=== PATIENT | female | born 1930 | race Caucasian/White ===

== ENCOUNTER 2016-12-10 07:10 | Day surgery (SDC) | payer MEDICARE, OTHER ==
[2016-12-07 12:06] LABS: HEMATOCRIT 34.5 % (36.0-48.0); HEMOGLOBIN 11.8 g/dL (12.0-16.0)
[2016-12-07 12:14] LABS: CHLORIDE, SERUM 101 MMOL/L (96-112); CO2 (CARBON DIOXIDE) 33 MMOL/L (24-34); CREATININE 0.84 MG/DL (0.55-1.02); GFR AFRICAN AMERICAN 73 ML/MIN (>=60); GFR NON AFRICAN AMERICAN 63 ML/MIN (>=60); POTASSIUM, SERUM 4.2 MMOL/L (3.5-5.3); SODIUM, SERUM 141 MMOL/L (135-148)
[2016-12-07 12:16] LABS: BUN (BLOOD UREA NITROGEN) 19 MG/DL (6-23); GLUCOSE, SERUM 175 MG/DL (60-99)
--- NOTE | ~2016-12-10 | OP ---
Record Of Operation [place] [id number] [facility] [place]. [address] NAME: TUSHAR TYLER : 32 STATUS : [place] [facility] [place] PAT#: [id number] AGE: 86 ADM/REG DATE : 12/10/16 MR#: [id number] REPORT SERV DATE: 12/10/16 DICTATED BY: JUSTIN MEDRANO DATE: 12/10/16 REPORT STATUS : Draft TRANSCRIBED BY: MODAissatou DATE: 12/10/16 DATE OF PROCEDURE: 12/10/2016 PREOPERATIVE DIAGNOSES: 1. Incarcerated periumbilical incisional hernia. 2. Diabetes mellitus. 3. Hypertension. 4. Hyperlipidemia. 5. Obstructive sleep apnea. 6. Asthma. POSTOPERATIVE DIAGNOSES: 1. Incarcerated incisional hernia x2 (periumbilical). 2. Diabetes mellitus. 3. Hypertension. 4. Hyperlipidemia. 5. Obstructive sleep apnea. 6. Asthma. PROCEDURE: Incarcerated incisional hernia x2 with mesh. ANESTHESIA: General. SURGEON: Justin Medrano M.D. [employer] CONSULTANT: Fuentes. COMPLICATIONS: None. DRAINS: None. ESTIMATED BLOOD LOSS: Less than 20 mL. FINDINGS: The patient was noted to have a right periumbilical and supraumbilical incisional hernias with incarcerated omentum and preperitoneal fat with a 0.5 mm skin bridge between the two defects. The total defective hernia space was 3 cm in diameter. OPERATIVE TECHNIQUE: The patient was brought to the operating room and placed on the table in supine position. She had preoperative IV antibiotics. She had sequential hose in place. She voided prior to the procedure. She underwent general endotracheal anesthesia and prepped and draped in a sterile fashion. A time-out was completed. Local anesthesia was instilled to the periumbilical skin. A 10 blade knife was used to make a longitudinal incision. The incision was carried through the subcutaneous tissues down the level of hernia sac at the level of the umbilicus extending just to the patient's right. The hernia sac was circumferentially dissected and during this dissection, the patient was noted to have an additional hernia with a small 5 mm fascial bridge. Both of the hernia sacs were Record Of Operation [place] [id number] [facility] [place]. [address] NAME: TUSHAR TYLER : 32 STATUS : [place] [facility] [place] PAT#: [id number] AGE: 86 ADM/REG DATE : 12/10/16 MR#: [id number] REPORT SERV DATE: 12/10/16 DICTATED BY: JUSTIN MEDRANO DATE: 12/10/16 REPORT STATUS : Draft TRANSCRIBED BY: BEATRIZ DATE: 12/10/16 circumferentially dissected and at this point, the hernia sacs along with incarcerated preperitoneal fat were excised. The finger was inserted into the larger defect and swept under the peritoneum. There were some loose adhesions of the omentum to the anterior abdominal wall that were taken down using electrocautery until all the adhesions of the anterior abdominal wall were taken down. The decision was made to make this one defect and a small fascial bridge was excised and the fascia around the edges of the hernia was debrided. Once healthy fascia was identified, the finger was once again inserted into the abdomen. There was no evidence of any peritoneal adhesions. This was confirmed with visualization. There was no evidence of any bleeding or other abnormalities and at this point, the 6.4 cm Ventralex mesh was placed and secured to the anterior abdominal wall with facial sutures laterally of 2-0 Prolene. The finger was inserted circumferentially to ensure there are no unwanted structures between the mesh and anterior abdominal wall. The primary defect was then closed without tension using a running looped 0 PDS suture. Subcutaneous tissues were then thoroughly irrigated. The subcutaneous tissues were then reapproximated using a running 3-0 Vicryl suture followed by running Monocryl subcuticular stitch. Dermabond was applied. She was extubated and taken to the recovery room in stable condition. All sponge and needle counts were reported correct. FANTASMA/BEATRIZ Justin Medrano M.D. / [id number] CC: Ryland Ricardo MD
[~2016-12-10 07:10] MED LIST: *UNABLE1; AMIT10 PO; ASA5GR PO; ASAB PO; ASABAYER PO; AZOR1 TA1 PO; CALTRA600D PO; CENTRUM PO; CENTRUM TAB1 TAB PO; CINNAMON PO; CLOBETASOL0.051 EX; CLOBETASOL0.051 TOP; FERROUS SULFATE PO; FISH-EPA1000 MG PO; HYDROCHLOROT12.5 MG PO; HYDROCHLOROT25 MG PO; INVOKANA PO; IRON PO; IRON325 MG PO; JANUMET1 TA1 PO; LANTUS SC; LANTUSCART SC; LIPITOR20 PO; LIPITOR40 PO; MAGNESIUM OTC PO; MAGNESIUM PO; MULTIVIT/MIN PO; NEXIUM40 PO; PREDNISONE PO; PRIM50B PO; PVC V; RESTASIS OPH; SINGULAIR1 PO; SYMBICORT 160/41 INH INH; ZOCOR40 PO
[2016-12-10 07:54] LABS: BASOPHILS 0.4 %; BASOPHILS ABSOLUTE 0.03 10/3/uL (0.0-0.16); EOSINOPHILS 0.6 %; EOSINOPHILS ABSOLUTE 0.05 10/3/uL (0.0-0.53); HEMATOCRIT 34.3 % (36.0-48.0); HEMOGLOBIN 11.6 g/dL (12.0-16.0); IMMATURE GRANULOCYTES 0.3 %; IMMATURE GRANULOCYTES ABSOLUTE 0.02 10/3/uL (0.0-0.11); LYMPHOCYTES ABSOLUTE 1.78 10/3/uL (0.67-4.30); MEAN CORPUS HGB CONC 33.8 g/dL (32.0-36.0); MEAN CORPUSCULAR HEMOGLOB 30.4 pg (26.0-34.0); MEAN PLATELET VOLUME 8.5 fL (9.2-13.0); NEUTROPHILS 66.7 %; NEUTROPHILS ABSOLUTE 5.16 10/3/uL (2.02-8.40); PLATELET COUNT 205 10/3/uL (150-400); RBC DISTRIBUTION WIDTH 14.1 % (12.0-16.0); RED CELL COUNT 3.82 10/6/uL (4.0-5.6)
[2016-12-10 07:55] LABS: MANUAL DIFF NO %; MEAN CORPUSCULAR VOLUME 89.8 fL (80-100); WHITE BLOOD CELLS 7.7 10/3/uL (4.5-10.5)
== END 2016-12-10 14:54 | disposition home or self-care (01) ==
LOC: SDC 07:10
PROVIDERS: Surgery
PROC: 0WUF0JZ Supplement Abdominal Wall with Synthetic Substitute, Open Approach (ICD-10-PCS; principal; 2016-12-10 09:00)
DX: K43.0 Incisional hernia with obstruction, without gangrene (principal); I10 Essential (primary) hypertension; E78.5 Hyperlipidemia, unspecified; E11.40 Type 2 diabetes mellitus with diabetic neuropathy, unspecified; E78.00 Pure hypercholesterolemia, unspecified; G47.33 Obstructive sleep apnea (adult) (pediatric); K21.9 Gastro-esophageal reflux disease without esophagitis; J45.909 Unspecified asthma, uncomplicated; H91.93 Unspecified hearing loss, bilateral; Z88.8 Allergy status to other drugs, medicaments and biological substances; Z79.4 Long term (current) use of insulin; Z79.82 Long term (current) use of aspirin; Z96.653 Presence of artificial knee joint, bilateral; Z79.899 Other long term (current) drug therapy; Z96.1 Presence of intraocular lens; Z98.41 Cataract extraction status, right eye; Z98.42 Cataract extraction status, left eye; Z90.89 Acquired absence of other organs; Z90.49 Acquired absence of other specified parts of digestive tract; Z90.710 Acquired absence of both cervix and uterus; Z98.890 Other specified postprocedural states
CPT/HCPCS: 80048; 82962; 85014; 85018; 85025; 87641; 93005; A9270-GY; C1781; J0360; J0690; J2405; J2550; J2710; J3010